=== PATIENT | female | born 1960 | race Caucasian/White ===

== ENCOUNTER 2018-02-18 07:57 | Emergency (ER) | payer OTHER, SELFPAY ==
[2018-02-18 08:08] VITALS: BP 141/96; PULSE 67; RESP 18; TEMP 36.8; O2SAT 98; BMI 22.4
--- NOTE | 2018-02-18 08:19 | ED.LOWEXIN ---
HPI - Extremity Injury (Lower) General Chief Complaint: Extremity Injury, Lower Stated Complaint: RAMMED RIGHT FOOT Time Seen by Provider: 02/18/18 08:18 Source: patient Mode of arrival: ambulatory Limitations: no limitations History of Present Illness HPI Narrative: Patient is a 57-year-old female who presents with right toe pain. She said she jammed it while going up the stairs her toes bent. He injured it at 5:00 a.m. this morning She she feels like the 2nd and 3rd toe are the most painful. Denies numbness or tingling. No ankle pain. MD complaint: foot injury Onset (ago): hour(s) Review of Systems Review of Systems GENERAL: Denies chills,fever HEENT: Denies throat pain RESPIRATORY: Denies dyspnea, cough, wheezing CARDIOVASCULAR: Denies chest pain, palpitations GASTROINTESTINAL: Denies nausea, vomiting MUSCULOSKELETAL: See HPI SKIN: No rash, no laceration, no pruritus NEUROLOGIC: Denies weakness, dizziness, headache, numbness 8 point review of systems is negative except for those stated above and HPI PFSH Social History Smoking Status: Current every day smoker Exam Initial Vital Signs Initial Vital Signs: Vital Signs Temperature 98.3 F 02/18/18 08:08 Pulse Rate 67 02/18/18 08:08 Respiratory Rate 18 02/18/18 08:08 Blood Pressure 141/96 H 02/18/18 08:08 Pulse Oximetry 98 02/18/18 08:08 GENERAL: Well-appearing, well-nourished and in no acute distress. CARDIOVASCULAR: peripheral pulses in tact, cap refill <2 sec RESPIRATORY: No respiratory distress, speaks in full sentences without difficulty EXTREMITIES: Normal range of motion, no clubbing or edema. Neurovascularly intact Right foot 2nd and 3rd toe contusion on phalanges. Able to resist big toe. No pain on lateral or by 5th toe. No ankle pain swelling or deformity. No midfoot pain. Distal pedal pulse intact NEUROLOGICAL: Cranial nerves II through XII grossly intact. Normal gait and speech. SKIN: Warm, dry, no petechiae, no rashes or lesions. Course Orders Ordered: ED Orders 02/18/18 08:21 XR foot RT min 3V Stat Vital Signs - 8 hr 02/18/18 08:08 02/18/18 09:24 Temperature 98.3 F Pulse Rate 67 70 Respiratory Rate 18 14 Blood Pressure 141/96 H Blood Pressure [Left Arm] 132/70 Pulse Oximetry 98 MDM - Extremity Injury (Lower) Imaging Data right foot XR: Attestation: I personally reviewed and interpreted this imaging study as follows: My impression: No fracture Radiologist's impression: PROCEDURE: XR FOOT RT MIN 3V INDICATIONS: jammed toes 2,3 hurt TECHNIQUE: 3 views of the foot were acquired. COMPARISON: None. FINDINGS: Bones: Acute transverse fracture through base of third middle phalanx is seen. Subtle lucency through base of second middle phalanx is also seen consistent with a subtle nondisplaced fracture. No other fracture or dislocation is seen. No suspicious bony lesions. Soft tissues: No tibiotalar joint effusion. Achilles tendon appears normal. IMPRESSION: Subtle nondisplaced fractures through second and third middle phalangeal bases. Dictated by: Jonatan Beltran M.D. on 02/18/2018 at 9:07 MDM Narrative Medical decision making narrative: Patient was given an orthopedic shoe. She was discharged prior to radiology read. Radiology read does show several fractures. I have called and spoke with patient and made her aware of the fractures. Recommended she continues to wear the orthopedic shoe and follow up with her PCP. Discharge Plan Departure Patient Disposition: Home Clinical Impression: Fracture of second toe, right, closed, Fracture of third toe, right, closed Discharge Date/Time: 02/18/18 09:26 Interventions: ED Discharge Assessment Last Done: 02/18/18 09:25 Instructions: DI for Toe Sprain Activity Restrictions/Additional Instructions: *You have been diagnosed with right toe sprain 2nd and 3rd toe *What to do: May wear orthopedic shoe to help give support, ice, elevate *Continue to take medications as directed Ibuprofen 600 mg every 6-8 hours if needed for pain or swelling *Follow up with your primary care provider in 2-3 days *Return to ER if you should have or any new, worsening or concerning symptoms
[2018-02-18 09:24] VITALS: BP 132/70; PULSE 70; RESP 14
== END 2018-02-18 09:26 | disposition home or self-care (01) ==
PROVIDERS: Emergency Provider Emergency Medicine
DX: S92.501A Displaced unspecified fracture of right lesser toe(s), initial encounter for closed fracture (principal); W22.8XXA Striking against or struck by other objects, initial encounter
CPT/HCPCS: 73630; 99282; 99283